=== PATIENT | male | born 1960 | race Caucasian/White ===

== ENCOUNTER 2016-10-17 18:49 | Inpatient (IN) | payer MEDICARE, MEDICAID ==
[~2016-10-17] VITALS: Ht 170.2 cm; Wt 72.5 kg
[~2016-10-17 18:49] MED LIST: /TAMS4CA; ALLE25CA; ATIV1TAB2; CHLO10SU; COGE1INJ; COLA100C2; DEPA500T2; EUCERIN; LAC HYDRIN; LASI20TA; MAGNESIUM; PRIL20CA; RISP3TAB16; SELSUN BLUE; [UNRECOGNIZED DRUG - OTHER]; [UNRECOGNIZED DRUG - OTHER]; dovonex; kenalog
[2016-10-17 21:45] LABS: CONTROL LINE INT CTR LINE PRESENT; METHADONE URINE NEGATIVE (NEGATIVE); TRICYCLIC ANTIDEPRESS URINE NEGATIVE (NEGATIVE)
[2016-10-17 22:17] LABS: MEAN CORPUSCULAR HEMOGLOBIN 30.6 pg (27.0-33.0); MEAN CORPUSCULAR HGB CONC 33.6 g/dl (32.0-36.5); MEAN CORPUSCULAR VOLUME 91.1 fl (80.0-96.0); RED CELL DISTRIBUTION WIDTH 12.7 % (11.5-14.5); WHITE BLOOD COUNT 6.4 K/mm3 (4.0-10.0)
[2016-10-17 22:44] LABS: ALBUMIN 3.5 GM/DL (3.2-5.2); ALBUMIN/GLOBULIN RATIO 1.13 (1.00-1.93); ALKALINE PHOSPHATASE 92 U/L (45-117); ALT/SGPT 30 U/L (12-78); ANION GAP 6 MEQ/L (8-16); AST/SGOT 26 U/L (15-37); BILIRUBIN,DIRECT 0.2 MG/DL (0.0-0.2); BILIRUBIN,TOTAL 0.6 MG/DL (0.2-1.0); BLOOD UREA NITROGEN 11 MG/DL (7-18); CALCIUM LEVEL 8.2 MG/DL (8.5-10.1); CARBON DIOXIDE LEVEL 29 MEQ/L (21-32); CHLORIDE LEVEL 105 MEQ/L (98-107); CREATININE FOR GFR 1.08 MG/DL (0.70-1.30); GLOMERULAR FILTRATION RATE > 60.0 (>56); GLUCOSE, FASTING 96 MG/DL (70-105); POTASSIUM SERUM 4.2 MEQ/L (3.5-5.1); SODIUM LEVEL 140 MEQ/L (136-145); TOTAL PROTEIN 6.6 GM/DL (6.4-8.2)
[2016-10-17] MEDS ORDERED: MAALOX 30 ML SUSP *UDC PO PRN (23:30)
[2016-10-17] MEDS ORDERED: MOM 30ML SUSPENSION UDC PO PRN (23:30)
[2016-10-17] MEDS ORDERED: CHLOR50TA PO (23:36)
[2016-10-17] MEDS ORDERED: ARTI99.0 OU (23:39)
[2016-10-17] MEDS ORDERED: ASPI325T PO (23:39)
[2016-10-17] MEDS ORDERED: STEL45IN SC (23:39)
[2016-10-18 04:29] VITALS: BP 135/80
[2016-10-18] MEDS ORDERED: chlorproMAZINE 25 MG TAB (Q0161) PO SCH ×2 (09:00→21:00)
--- NOTE | 2016-10-18 10:46 | HPEPDOC ---
Medical History and Physical Date of Admission Oct 17, 2016 at 23:18 History and Physical PCP: Dr Anastacio Felix ATTENDING: Dr. Lars Edwards HPI: 56 yo M admitted to [facility] for schizophrenia, being medically examined today. No acute medical complaints today. Denies any fevers, chills, weakness, fatigue, STEELE, CP, SOB, cough, palpitations, abdominal pain, N/V/D or changes in bowel or bladder habits. 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 IV Drug Use: Denies Tattoos done unprofessionally: 1 No previous HIV/hepatitis screening FAMHX: Mother: , pulmonary fibrosis Father: Alive, well Siblings: 3 sisters, one brother Alive, unknown Children: Alive, asthma Unexpected deaths due to medical reasons: None. ROS: As noted in HPI, otherwise 11pt ROS of systems reviewed and unremarkable. PE: GEN: 56 yoM, appears stated age. Well-nourished, well developed. No acute distress. Anxious. HEENT: Normocephalic, atraumatic. Pupils are equal, round, and reactive to light. Extraocular movements are intact. No nystagmus appreciated. Sclera are nonicteric. Conjunctiva without injection. Nose midline. Nasal turbinates without bogginess. EACs both patent BL. TMs both visualized and zelaya with good cone of light, no bulging or erythema. No facial asymmetry. Moist mucous membranes. Dentition fair. Pharynx pink and moist, no cobblestoning. Neck supple , trachea midline. No lymphadenopathy or thyromegaly appreciated. CHEST: Regular rate and rhythm, +S1, +S2 LUNGS: Clear to auscultation bilaterally. No wheezes, rales, or rhonchi. Breathing appears symmetric and easy. Patient is speaking in full sentences. No accessory muscle use. ABD: Round, soft, non-tender, non-distended. +Bowel sounds throughout. No rebound or guarding. No costovertebral angle tenderness. EXT: Pulses 2+ bilaterally dorsalis pedis and radial. No lower extremity edema appreciated. SKIN: [place], dry, warm. Capillary refill <2sec. psoriatic lesions are noted on the lower extremities bilaterally. NEURO: Alert and oriented x 3. Cranial nerves III-XII are intact. No focal deficits appreciated. EKG: pending. A&P: 56 yo M admitted to [facility] for schizophrenia 1. Psych. Plan per Psychiatry. Obtain baseline EKG to assure the safety of psychiatric medications as they can prolong the QT interval. 2. Dry eyes. Continue artificial tears as needed. 3. Psoriasis. Patient states he follows with [facility] dermatology. He remains on Stelara injection 45 mg subcutaneous every 3 monthly. He states his last dose was 10/04/16. 4. Follow up with PCP on discharge. 5. Staff member present throughout exam, melanie Quiñones. Vital Signs Vital Signs Label Value Date Time Patient Temperature 97.5 degrees F 10/18/16428 Temperature Source Tympanic 10/18/16428 Pulse 83 10/18/16428 Respiratory Rate 18 bpm 10/18/16428 Blood Pressure Assessment 135/80 (98) 10/18/16428 Bedside Pulse Oximetry 97 % 10/18/16 0415 Item Value Date Time Oxygen Delivery Method Room Air 10/18/16428 Laboratory Data Labs 24H Laboratory Tests 2 10/17/16 21:26: Urine Amphetamines Screen NEGATIVE, Urine Benzodiazepines Screen NEGATIVE, Urine Opiates Screen NEGATIVE, Urine Barbiturates Screen NEGATIVE, Urine Cannabinoids Screen NEGATIVE, Urine Cocaine Metabolite Screen NEGATIVE, Urine Methadone Screen NEGATIVE, Urine Tricyclic Antidepressants NEGATIVE 10/17/16 21:38: Acetaminophen Level < 2.0L, Aspartate Amino Transf (AST/SGOT) 26, Alanine Aminotransferase (ALT/SGPT) 30, Alkaline Phosphatase 92, Total Bilirubin 0.6, Direct Bilirubin 0.2, Albumin 3.5, Albumin/Globulin Ratio 1.13, Anion Gap 6L, Calcium Level 8.2L, Ethyl Alcohol Level < 0.003, Glomerular Filtration Rate > 60.0, Salicylates Level < 1.7L, Thyroid Stimulating Hormone (TSH) 0.947, Total Protein 6.6 CBC/BMP Laboratory Tests 10/17/16 21:38 Red Blood Count 5.22, Mean Corpuscular Volume 91.1, Mean Corpuscular Hemoglobin 30.6, Mean Corpuscular Hemoglobin Concent 33.6, Red Cell Distribution Width 12.7 Home Medications Scheduled (Stelara) 45 Mg/0.5 Ml Inj 45 MG SC Q3M Chlorpromazine HCl (Chlorpromazine HCl) 50 Mg Tab 50 MG PO QHS TOOK 100 MG 3/1 QHS Scheduled PRN Artificial Tears (Artificial Tears) 1.4 % Lona 1 DROP OU QID PRN PRN DRY EYES Aspirin (Aspirin) 325 Mg Tab 650 MG PO Q4H PRN PRN HEADACHE OR PAIN Allergies Coded Allergies: Ethanol (Verified Allergy, Unknown, 11/20/12) Fluoxetine (Verified Allergy, Unknown, 11/20/12) Olanzapine (Verified Allergy, Unknown, 11/20/12) Quetiapine (Verified Allergy, Unknown, 11/20/12) Risperidone (Verified Allergy, Unknown, HIVES, 11/20/12) Sertraline (Verified Allergy, Unknown, 11/20/12) Thioridazine (Verified Allergy, Unknown, 11/20/12) Nancy Anderson Oct 18, 2016 10:46
[2016-10-18 18:00] VITALS: BP 118/77
[2016-10-18] MEDS: HALOPERIDOL 5 MG TAB PO PRN (20:26)
[2016-10-18] MEDS: LORazepam 2 MG TAB PO PRN (20:26)
[2016-10-18] MEDS: diphenhydrAMINE 25 MG CAP PO PRN (20:26)
--- NOTE | 2016-10-18 20:33 | ECGEPIP ---
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
[2016-10-18] MEDS ORDERED: zolPIDEM TARTRATE 5 MG TAB PO ONE (21:00)
[2016-10-18] MEDS: chlorproMAZINE 25 MG TAB (Q0161) PO PRN (21:15)
[2016-10-19 06:37] VITALS: BP 105/57
[2016-10-19 18:00] VITALS: BP 111/62
[2016-10-19] MEDS: diphenhydrAMINE 25 MG CAP PO PRN (20:11)
[2016-10-19] MEDS: LORazepam 2 MG TAB PO PRN (20:11)
[2016-10-19] MEDS: chlorproMAZINE 25 MG TAB (Q0161) PO PRN (20:11)
[2016-10-19] MEDS: HALOPERIDOL 5 MG TAB PO PRN (20:11)
[2016-10-20 06:41] VITALS: BP 118/73
--- NOTE | 2016-10-20 08:34 | IPN ---
DATE: 10/19/2016 SUBJECTIVE: "Thorazine is what I need." OBJECTIVE: Patient appears to be improving slowly. Patient continues to be talkative but is in better control. Paranoid delusion has decreased. Patient is denying side effect from the medication and believed that Thorazine is helping, he is taking 100 mg twice a day. MENTAL STATUS EXAMINATION: Patient is dressed in [facility]. Patient is cooperative, has poor eye contact. His speech is somewhat pressured and talkative. Mood is somewhat elated. Affect is expansive. Patient continues with paranoid delusions but they are improving. No auditory or visual hallucinations. Memory is fair. Patient is able to contract for safety and denies suicidal or homicidal ideation during the interview. Insight and judgment is poor. ASSESSMENT: 1. Depression. 2. Paranoia. 3. Suicidal ideation. PLAN: 1. Continue Thorazine 100 mg by mouth twice a day. 2. Continue close observation. 3. Continue medication management, individual, and group therapy.
[2016-10-20 18:00] VITALS: BP 115/77
[2016-10-20] MEDS: LORazepam 2 MG TAB PO PRN (20:06)
[2016-10-20] MEDS: HALOPERIDOL 5 MG TAB PO PRN (20:06)
[2016-10-20] MEDS: chlorproMAZINE 25 MG TAB (Q0161) PO PRN (20:06)
[2016-10-21 06:20] VITALS: BP 117/63
[2016-10-21] MEDS: POLYVINYL ALCOHOL OPHTH SOLN 15 ML(LIQUITEARS) OU PRN (08:12)
--- NOTE | 2016-10-21 17:30 | IPN ---
DATE: 10/20/2016 MEDICATIONS: Thorazine 100 mg by mouth twice a day. SUBJECTIVE: "I'm feeling better." OBJECTIVE: The patient was laying in bed. The patient denies side effect from Thorazine but says that he was taking 50 mg as outpatient. He denies excessive sedation. The patient is less paranoid. The patient is able to contract for safety and denies suicidal or homicidal ideation during the interview. MENTAL STATUS EXAMINATION: The patient is dressed in [facility]. The patient is cooperative during the interview. He has fair eye contact. His speech is slow and monotone. Mood is anxous. Affect is restricted. The patient is less delusional and denies auditory and visual hallucinations. Memory is fair. The patient is able to contract for safety and denies suicidal or homicidal ideation during the interview. Insight and judgment are poor. ASSESSMENT: 1. Depression. 2. Paranoia. 3. Suicidal ideation. PLAN: 1. Continue Thorazine 100 mg by mouth twice a day. 2. Continue close observation. 3. Continue medication management, individual, and group therapy.
[2016-10-21 18:00] VITALS: BP 118/72
[2016-10-21] MEDS: diphenhydrAMINE 25 MG CAP PO PRN (21:01)
[2016-10-21] MEDS: LORazepam 2 MG TAB PO PRN (21:01)
[2016-10-21] MEDS: chlorproMAZINE 25 MG TAB (Q0161) PO SCH (21:01)
[2016-10-22 06:23] VITALS: BP 109/56
[2016-10-22] MEDS: ACETAMINOPHEN TAB 650MG DOSE (2X325MG) PO PRN (08:03)
[2016-10-22] MEDS: chlorproMAZINE 25 MG TAB (Q0161) PO PRN (17:35)
[2016-10-22] MEDS: diphenhydrAMINE 25 MG CAP PO PRN (20:35)
[2016-10-22] MEDS: LORazepam 2 MG TAB PO PRN (20:35)
[2016-10-22] MEDS: POLYVINYL ALCOHOL OPHTH SOLN 15 ML(LIQUITEARS) OU PRN (20:37)
[2016-10-22] MEDS: chlorproMAZINE 25 MG TAB (Q0161) PO SCH (20:39)
[2016-10-22 22:08] VITALS: BP 129/76
[2016-10-23 06:10] VITALS: BP 95/63
[2016-10-23] MEDS: POLYVINYL ALCOHOL OPHTH SOLN 15 ML(LIQUITEARS) OU PRN ×2 (06:43→20:51)
[2016-10-23 10:20] VITALS: BP 122/72
[2016-10-23 18:00] VITALS: BP 123/75
[2016-10-23] MEDS: chlorproMAZINE 25 MG TAB (Q0161) PO SCH (20:51)
[2016-10-23] MEDS: diphenhydrAMINE 25 MG CAP PO PRN (23:00)
[2016-10-24] MEDS: LORazepam 2 MG TAB PO PRN ×3 (05:08→20:34)
[2016-10-24 06:31] VITALS: BP 118/56
[2016-10-24 18:00] VITALS: BP 126/85
[2016-10-24] MEDS: chlorproMAZINE 25 MG TAB (Q0161) PO SCH (20:34)
[2016-10-24] MEDS: diphenhydrAMINE 25 MG CAP PO PRN (20:34)
[2016-10-25] MEDS: diphenhydrAMINE 25 MG CAP PO PRN (06:08)
[2016-10-25 06:37] VITALS: BP 86/56
[2016-10-25 08:16] VITALS: BP 128/70
[2016-10-25] MEDS: POLYVINYL ALCOHOL OPHTH SOLN 15 ML(LIQUITEARS) OU PRN (09:27)
[2016-10-25 18:00] VITALS: BP 128/77
[2016-10-25] MEDS: chlorproMAZINE 25 MG TAB (Q0161) PO SCH (20:54)
[2016-10-25] MEDS: LITHIUM CARBONATE 300 MG CAP PO SCH (20:55)
[2016-10-25] MEDS: LORazepam 1 MG TAB PO PRN (20:56)
[2016-10-26] MEDS: LORazepam 1 MG TAB PO PRN ×2 (04:41→17:43)
[2016-10-26 07:03] VITALS: BP 104/69
[2016-10-26 18:00] VITALS: BP 112/65
[2016-10-26] MEDS: LITHIUM CARBONATE 300 MG CAP PO SCH (21:00)
[2016-10-26] MEDS: chlorproMAZINE 25 MG TAB (Q0161) PO SCH (22:46)
[2016-10-27] MEDS: POLYVINYL ALCOHOL OPHTH SOLN 15 ML(LIQUITEARS) OU PRN (06:34)
[2016-10-27 06:46] VITALS: BP 120/74
[2016-10-27 18:00] VITALS: BP 138/80
[2016-10-27] MEDS: chlorproMAZINE 25 MG TAB (Q0161) PO SCH (22:54)
[2016-10-27] MEDS: LITHIUM CARBONATE 300 MG CAP PO SCH (22:54)
[2016-10-28] MEDS: LORazepam 1 MG TAB PO PRN ×3 (00:17→23:18)
[2016-10-28] MEDS: diphenhydrAMINE 25 MG CAP PO PRN ×2 (04:31→23:17)
[2016-10-28] MEDS: ACETAMINOPHEN TAB 650MG DOSE (2X325MG) PO PRN (04:33)
[2016-10-28 06:30] VITALS: BP 122/74
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
[2016-10-28 18:00] VITALS: BP 125/83
[2016-10-28] MEDS: chlorproMAZINE 25 MG TAB (Q0161) PO SCH (23:17)
[2016-10-28] MEDS: LITHIUM CARBONATE 300 MG CAP PO SCH (23:17)
[2016-10-29 06:32] VITALS: BP 108/72
[2016-10-29] MEDS: LORazepam 1 MG TAB PO PRN ×2 (14:39→20:01)
[2016-10-29] MEDS: diphenhydrAMINE 25 MG CAP PO PRN ×2 (14:39→20:01)
[2016-10-29] MEDS: chlorproMAZINE 25 MG TAB (Q0161) PO PRN (15:05)
--- NOTE | 2016-10-29 17:01 | IPNPDOC ---
[facility] Progress Note Progress Note DATE OF SERVICE: 10/29/16 HISTORY: The patient is met with today and continues to describe that he feels some dry mouth secondary to lithium. He does describe the Thorazine gives him a dry mouth as well. He was focused on discharge. The nursing staff noted behavior to remain somewhat bizarre. He has attended groups intermittently. He has been noted to be socializing of the peers on the jordan. VITAL SIGNS: See below. NEW TEST RESULTS: None. CURRENT MEDICATIONS: See below. MENTAL STATUS EXAMINATION: Patient is a 56-year old male, who is pleasant and cooperative but disheveled,. Speech: is normal in rate volume and articulation. His speech appears generally spontaneous and coherent. Language skills are intact. Thought processes including: Somewhat circumferential Thought content: Illogical at times. Abstract reasoning, and computation: [place] thinking. Description of associations: Loose. Description of abnormal or psychotic thoughts: Does not appear to be responding to internal stimuli.. Judgment: Limited. Insight: Limited. Orientation to time place and person. Recent and remote memory: Immediate, short-term and long-term memory appears grossly intact. Attention span and concentration: Good. Language: Normal. Fund of knowledge: Adequate. Mood: "Okay". Affect: Flat. DIAGNOSES: 1. Unspecified psychotic disorder. 2. Unspecified depressive disorder ASSESSMENT: A 56-year-old man with a history of psychosis who presents in a paranoid and mood disordered state. He is started on lithium which appears to be improving his mood and he appears to be less bizarre. MANAGEMENT PLAN: 1. Continue lithium 300 mg twice a day, ordering a lithium level today as it appears as though no order to be found 2. Continue Thorazine 125 mg daily 3. Continue inpatient stay as the patient will need further titration of medicine and are to control his paranoid and mood disordered state. At this time still poses a danger to himself and others if he is prematurely released TIME SPENT: 10 minutes. Vital Signs Vital Signs Date Time Temp Pulse Resp B/P Pulse Ox O2 Delivery O2 Flow Rate FiO2 10/29/16 06:32 95.8 68 16 108/72 10/25/16 08:16 98 Current Medications Current Medications Acetaminophen (Tylenol Tab) 650 mg Q6HP PRN PO HEADACHE or DISCOMFORT Last administered on 10/28/16t 04:33; Start 10/17/16 at 23:30; Stop 11/16/16 at 23:29 Al Hydrox/Mg Hydrox/Simethicone (Mylanta) 30 ml Q4HP PRN PO HEARTBURN/ INDIGESTION; Start 10/17/16 at 23:30; Stop 11/16/16 at 23:29 Artificial Tears ([place]wa Tears) 1 drop QIDP PRN OU DRY EYES Last administered on 10/27/16 06:34; Start 10/18/16 at 10:45; Stop 11/17/16 at 10:44 Chlorpromazine HCl (Thorazine) 25 mg Q6HP PRN PO AGITATION Last administered on 10/29/16 15:05; Start 10/21/16 at 12:45; Stop 11/20/16 at 12:44 Chlorpromazine HCl (Thorazine) 50 mg Q4HP PRN PO AGITATION Last administered on 10/20/16 20:06; Start 10/17/16 at 23:30; Stop 10/21/16 at 12:29; Status DC Chlorpromazine HCl (Thorazine) 50 mg QHS PO ; Start 10/18/16 at 21:00; Stop at 20:59; Status Cancel Chlorpromazine HCl (Thorazine) 75 mg QHS PO Last administered on 10/24/16 20:34 ; Start 10/23/16 at 21:00; Stop 10/25/16 at 11:54; Status DC Chlorpromazine HCl (Thorazine) 100 mg BID PO ; Start 10/18/16 at 09:00; Stop 10/18 at 13:34; Status DC Chlorpromazine HCl (Thorazine) 100 mg QHS PO Last administered on 10/22/16 20: 39; Start 10/21/16 at 21:00; Stop 10/23/16 at 10:16; Status DC Chlorpromazine HCl (Thorazine) 125 mg QHS PO Last administered on 10/28/16 23: 17; Start 10/25/16 at 21:00; Stop 11/24/16 at 20:59 Diphenhydramine HCl (Benadryl) 25 mg Q4HP PRN PO ITCHING Last administered on 14:39; Start 10/18/16 at 19:00; Stop 11/17/16 at 18:59 Haloperidol (Haldol) 5 mg Q4HP PRN PO AGITATION Last administered on 10/20/16 20:06; Start 10/18/16 at 19:00; Stop 10/21/16 at 12:29; Status DC Home Med (Med Rec Complete!) ASDIRECTED XX ; Start 10/17/16 at 23:45; Stop at 23:45; Status DC [place] Carbonate ([place] Carbonate) 300 mg QHS PO Last administered on 23:17; Start 10/25/16 at 21:00; Stop 11/24/16 at 20:59 Lorazepam (Ativan) 1 mg QIDP PRN PO ANXIETY/AGITATION Last administered on 10/29 14:39; Start 10/25/16 at 19:00; Stop 10/31/16 at 18:59 Lorazepam (Ativan) 2 mg Q4HP PRN PO ANXIETY/AGITATION Last administered on 20:34; Start 10/18/16 at 19:00; Stop 10/25/16 at 11:54; Status DC Magnesium Hydroxide (Milk Of Magnesia) 30 ml DAILYPRN PRN PO CONSTIPATION Last administered on 10/27/16 08:43; Start 10/17/16 at 23:30; Stop 11/16/16 at 23:29 Allergies Coded Allergies: Ethanol (Verified Allergy, Unknown, 11/20/12) Fluoxetine (Verified Allergy, Unknown, 11/20/12) Olanzapine (Verified Allergy, Unknown, 11/20/12) Quetiapine (Verified Allergy, Unknown, 11/20/12) Risperidone (Verified Allergy, Unknown, HIVES, 11/20/12) Sertraline (Verified Allergy, Unknown, 11/20/12) Thioridazine (Verified Allergy, Unknown, 11/20/12) GME ATTESTATION My preceptor for this patient encounter was fully available. As needed, all aspects of the patient interview, examination, medical decision making process, and medical care plan development were reviewed and approved by the preceptor. Preceptor is aware and concurs with the plan as stated in the body of this note and will attest to such by his/her cosignature. JERRY HOOD DO Oct 29, 2016 17:01
[2016-10-29 18:00] VITALS: BP 108/72
[2016-10-29] MEDS: LITHIUM CARBONATE 300 MG CAP PO SCH (20:01)
[2016-10-29] MEDS: chlorproMAZINE 25 MG TAB (Q0161) PO SCH (20:01)
[2016-10-30 06:00] VITALS: BP 98/62
[2016-10-30] MEDS: chlorproMAZINE 25 MG TAB (Q0161) PO PRN (15:22)
[2016-10-30 18:00] VITALS: BP 137/79
--- NOTE | 2016-10-30 21:27 | IPNPDOC ---
[facility] Progress Note Progress Note DATE OF SERVICE: 10/30/16 HISTORY: The patient is met with both separately and in group today. He had a productive process group and opened up about his issues with judgement and feeling fearful of other's intensions. The group was challenging and supportive to him. He was able to reflect on his challenges with medical problems and the justification of extremely expensive medicines. He is eager to be discharged on friday. His lithium level came back at subtherapeutic on 300mg BID. He has alluded to no issues with his skin condition since the start of the lithium last week ( lithium and psoriasis can sometimes worsen psoriasis). The patient otherwise described that he was feeling better. He has been able to relate to others in more meaningful ways with less irritability and difficulty. He spoke of missing his family. VITAL SIGNS: See below. NEW TEST RESULTS: [place] less than 0.20 CURRENT MEDICATIONS: See below. MENTAL STATUS EXAMINATION: Patient is a 56-year old male, who is cooperative and at times irritable. Speech: Is normal in rate, volume, and articulation, and is coherent and spontaneous. Language skills are intact. Thought processes including: Goal directed. Thought content: irrational and somewhat paranoid Abstract reasoning, and computation: intact. Description of associations: somewhat loose Description of abnormal or psychotic thoughts: makes no threats to others or self. Doesn't allude to any AH or VH. Doesn't appear to be responding to internal stimuli. Judgment: fair Insight: poor, improving Orientation to time, place and person Recent and remote memory: immediate, short-term and long-term memory is intact. Attention span and concentration: good Language: Normal. Fund of knowledge: adequate Mood: "fine" Affect: flat DIAGNOSES: 1. Unspecified psychosis 2. History of Bipolar disorder ASSESSMENT:56 yo man with a history of bipolar disorder, whom presents in a paranoid and dysregulated state. He has been improving on lithium, although it could worsen his skin condition, he has yet to have any issues with it as of yet. MANAGEMENT PLAN: 1.[place] increase to 600mg BID, with level in a few days 2. Thorazine 125mg daily 3. Continue inpatient stay as patient is too ill from his paranoid state at this time to be safety discharged home TIME SPENT: 30 minutes. Vital Signs Vital Signs Date Time Temp Pulse Resp B/P Pulse Ox O2 Delivery O2 Flow Rate FiO2 10/30/16 06:00 98.0 95 16 98/62 10/25/16 08:16 98 Laboratory Data 24H Labs Item Value Date Time [place] Level < 0.20 MEQ/L L 10/29/16 1739 Current Medications Current Medications Acetaminophen (Tylenol Tab) 650 mg Q6HP PRN PO HEADACHE or DISCOMFORT Last administered on 10/28/16 04:33; Start 10/17/16 at 23:30; Stop 11/16/16 at 23:29 Al Hydrox/Mg Hydrox/Simethicone (Mylanta) 30 ml Q4HP PRN PO HEARTBURN/ INDIGESTION; Start 10/17/16 at 23:30; Stop 11/16/16 at 23:29 Artificial Tears ([place] Tears) 1 drop QIDP PRN OU DRY EYES Last administered on 10/27/16 06:34; Start 10/18/16 at 10:45; Stop 11/17/16 at 10:44 Chlorpromazine HCl (Thorazine) 25 mg Q6HP PRN PO AGITATION Last administered on 10/30/16 15:22; Start 10/21/16 at 12:45; Stop 11/20/16 at 12:44 Chlorpromazine HCl (Thorazine) 50 mg Q4HP PRN PO AGITATION Last administered on 10/20/16 20:06; Start 10/17/16 at 23:30; Stop 10/21/16 at 12:29; Status DC Chlorpromazine HCl (Thorazine) 50 mg QHS PO ; Start 10/18/16 at 21:00; Stop at 20:59; Status Cancel Chlorpromazine HCl (Thorazine) 75 mg QHS PO Last administered on 10/24/16 20:34 ; Start 10/23/16 at 21:00; Stop 10/25/16 at 11:54; Status DC Chlorpromazine HCl (Thorazine) 100 mg BID PO ; Start 10/18/16 at 09:00; Stop 10/18 at 13:34; Status DC Chlorpromazine HCl (Thorazine) 100 mg QHS PO Last administered on 10/22/16 20: 39; Start 10/21/16 at 21:00; Stop 10/23/16 at 10:16; Status DC Chlorpromazine HCl (Thorazine) 125 mg QHS PO Last administered on 10/29/16 20: 01; Start 10/25/16 at 21:00; Stop 11/24/16 at 20:59 Diphenhydramine HCl (Benadryl) 25 mg Q4HP PRN PO ITCHING Last administered on 20:01; Start 10/18/16 at 19:00; Stop 11/17/16 at 18:59 Haloperidol (Haldol) 5 mg Q4HP PRN PO AGITATION Last administered on 10/20/16 20:06; Start 10/18/16 at 19:00; Stop 10/21/16 at 12:29; Status DC Home Med (Med Rec Complete!) ASDIRECTED XX ; Start 10/17/16 at 23:45; Stop at 23:45; Status DC [place] Carbonate ([place] Carbonate) 300 mg QHS PO Last administered on 20:01; Start 10/25/16 at 21:00; Stop 10/30/16 at 16:29; Status DC [place] Carbonate ([place] Carbonate) 600 mg QHS PO ; Start 10/30/16 at 21:00; Stop 11/29/16 at 20:59 Lorazepam (Ativan) 1 mg QIDP PRN PO ANXIETY/AGITATION Last administered on 10/29 20:01; Start 10/25/16 at 19:00; Stop 10/31/16 at 18:59 Lorazepam (Ativan) 2 mg Q4HP PRN PO ANXIETY/AGITATION Last administered on 20:34; Start 10/18/16 at 19:00; Stop 10/25/16 at 11:54; Status DC Magnesium Hydroxide (Milk Of Magnesia) 30 ml DAILYPRN PRN PO CONSTIPATION Last administered on 10/27/16 08:43; Start 10/17/16 at 23:30; Stop 11/16/16 at 23:29 Allergies Coded Allergies: Ethanol (Verified Allergy, Unknown, 11/20/12) Fluoxetine (Verified Allergy, Unknown, 11/20/12) Olanzapine (Verified Allergy, Unknown, 11/20/12) Quetiapine (Verified Allergy, Unknown, 11/20/12) Risperidone (Verified Allergy, Unknown, HIVES, 11/20/12) Sertraline (Verified Allergy, Unknown, 11/20/12) Thioridazine (Verified Allergy, Unknown, 11/20/12) GME ATTESTATION My preceptor for this patient encounter was fully available. As needed, all aspects of the patient interview, examination, medical decision making process, and medical care plan development were reviewed and approved by the preceptor. Preceptor is aware and concurs with the plan as stated in the body of this note and will attest to such by his/her cosignature. JERRY HOOD DO Oct 30, 2016 21:27
[2016-10-30] MEDS: LITHIUM CARBONATE 600 MG CAP PO SCH (23:15)
[2016-10-30] MEDS: chlorproMAZINE 25 MG TAB (Q0161) PO SCH (23:16)
[2016-10-31] MEDS: LORazepam 1 MG TAB PO PRN (00:39)
[2016-10-31 06:20] VITALS: BP 142/98
[2016-10-31] MEDS: chlorproMAZINE 25 MG TAB (Q0161) PO PRN (14:49)
[2016-10-31 18:00] VITALS: BP 132/77
--- NOTE | 2016-10-31 19:12 | IPNPDOC ---
[facility] Progress Note Progress Note DATE OF SERVICE: 10/31/16 HISTORY: The patient is met with today partial in group and individually. He described that he is feeling better for discharge and is excited. He has alluded to no signs of lithium toxicity has has been increased to 600 mg twice a day. His previous lithium levels were well below therapeutic for bipolar disorder. The patient. he has been socializing on the jordan as been generally nondisruptive. He has at times annoyed other patients but appears to be generally amenable to redirection. His has reportedly testified that he is close to his baseline is feel safe taking him home. The nursing staff have no complaints or issues relating to his behavior overnight. VITAL SIGNS: See below. NEW TEST RESULTS: None. CURRENT MEDICATIONS: See below. MENTAL STATUS EXAMINATION: Patient is a 56-year old male, who is pleasant and cooperative, . Speech: Is spontaneous and fluid. Language skills are intact Thought processes including: Linear. Thought content: Peers to perseverate at times about mandaeism ideation but is easily redirectable. Abstract reasoning, and computation: Generally intact. Description of associations: Circumstantial. Description of abnormal or psychotic thoughts: And does not making threats against himself or others on the jordan. Does not appear to be responding to internal stimuli. Judgment: Fair. Insight: Limited. Orientation to alert and oriented 3. Recent and remote memory: Grossly intact. Attention span and concentration: Good. Language: Normal. Fund of knowledge: Adequate. Mood: "Excited". Affect: Somewhat elated and constricted with some intrusive behavior. DIAGNOSES: 1. Unspecified psychosis. 2. History of bipolar disorder. ASSESSMENT: 56-year-old male with a history of bipolar disorder who presents in what appears to be a manic episode. He has responded well to the lithium and his Thorazine. He did allude that he has used marijuana recently as a possible provoking factor for his current manic episode. He has been improving on the jordan although, his lithium levels are not therapeutic as of yet he has done quite well on his current dose of lithium MANAGEMENT PLAN: 1. Continue lithium 6 mg twice a day 2. Continue Thorazine 125 mg daily 3. Plan for discharge tomorrow with close outpatient follow-up TIME SPENT: 15 minutes. Vital Signs Vital Signs Date Time Temp Pulse Resp B/P Pulse Ox O2 Delivery O2 Flow Rate FiO2 10/31/16 18:00 99.0 100 16 132/77 10/25/16 08:16 98 Current Medications Current Medications Acetaminophen (Tylenol Tab) 650 mg Q6HP PRN PO HEADACHE or DISCOMFORT Last administered on 10/28/16 04:33; Start 10/17/16 at 23:30; Stop 11/16/16 at 23:29 Al Hydrox/Mg Hydrox/Simethicone (Mylanta) 30 ml Q4HP PRN PO HEARTBURN/ INDIGESTION; Start 10/17/16 at 23:30; Stop 11/16/16 at 23:29 Artificial Tears (Akwa Tears) 1 drop QIDP PRN OU DRY EYES Last administered on 10/27/16 06:34; Start 10/18/16 at 10:45; Stop 11/17/16 at 10:44 Chlorpromazine HCl (Thorazine) 25 mg Q6HP PRN PO AGITATION Last administered on 10/31/16 14:49; Start 10/21/16 at 12:45; Stop 11/20/16 at 12:44 Chlorpromazine HCl (Thorazine) 50 mg Q4HP PRN PO AGITATION Last administered on 10/20/16 20:06; Start 10/17/16 at 23:30; Stop 10/21/16 at 12:29; Status DC Chlorpromazine HCl (Thorazine) 50 mg QHS PO ; Start 10/18/16 at 21:00; Stop at 20:59; Status Cancel Chlorpromazine HCl (Thorazine) 75 mg QHS PO Last administered on 10/24/16 20:34 ; Start 10/23/16 at 21:00; Stop 10/25/16 at 11:54; Status DC Chlorpromazine HCl (Thorazine) 100 mg BID PO ; Start 10/18/16 at 09:00; Stop 10/18 at 13:34; Status DC Chlorpromazine HCl (Thorazine) 100 mg QHS PO Last administered on 10/22/16 20: 39; Start 10/21/16 at 21:00; Stop 10/23/16 at 10:16; Status DC Chlorpromazine HCl (Thorazine) 125 mg QHS PO Last administered on 10/30/16 23: 16; Start 10/25/16 at 21:00; Stop 11/24/16 at 20:59 Diphenhydramine HCl (Benadryl) 25 mg Q4HP PRN PO ITCHING Last administered on 20:01; Start 10/18/16 at 19:00; Stop 11/17/16 at 18:59 Haloperidol (Haldol) 5 mg Q4HP PRN PO AGITATION Last administered on 10/20/16 20:06; Start 10/18/16 at 19:00; Stop 10/21/16 at 12:29; Status DC Home Med (Med Rec Complete!) ASDIRECTED XX ; Start 10/17/16 at 23:45; Stop at 23:45; Status DC [place] Carbonate ([place] Carbonate) 300 mg QHS PO Last administered on 20:01; Start 10/25/16 at 21:00; Stop 10/30/16 at 16:29; Status DC [place] Carbonate ([place] Carbonate) 600 mg QHS PO Last administered on 23:15; Start 10/30/16 at 21:00; Stop 11/29/16 at 20:59 Lorazepam (Ativan) 1 mg QIDP PRN PO ANXIETY/AGITATION Last administered on 10/31 00:39; Start 10/25/16 at 19:00; Stop 10/31/16 at 18:59; Status DC Lorazepam (Ativan) 2 mg Q4HP PRN PO ANXIETY/AGITATION Last administered on 20:34; Start 10/18/16 at 19:00; Stop 10/25/16 at 11:54; Status DC Magnesium Hydroxide (Milk Of Magnesia) 30 ml DAILYPRN PRN PO CONSTIPATION Last administered on 10/27/16 08:43; Start 10/17/16 at 23:30; Stop 11/16/16 at 23:29 Allergies Coded Allergies: Ethanol (Verified Allergy, Unknown, 11/20/12) Fluoxetine (Verified Allergy, Unknown, 11/20/12) Olanzapine (Verified Allergy, Unknown, 11/20/12) Quetiapine (Verified Allergy, Unknown, 11/20/12) Risperidone (Verified Allergy, Unknown, HIVES, 11/20/12) Sertraline (Verified Allergy, Unknown, 11/20/12) Thioridazine (Verified Allergy, Unknown, 11/20/12) GME ATTESTATION My preceptor for this patient encounter was fully available. As needed, all aspects of the patient interview, examination, medical decision making process, and medical care plan development were reviewed and approved by the preceptor. Preceptor is aware and concurs with the plan as stated in the body of this note and will attest to such by his/her cosignature. JERRY HOOD DO Oct 31, 2016 19:12
[2016-10-31] MEDS: LITHIUM CARBONATE 600 MG CAP PO SCH (23:02)
[2016-10-31] MEDS: chlorproMAZINE 25 MG TAB (Q0161) PO SCH (23:02)
[2016-11-01 06:20] VITALS: BP 130/82
[2016-11-01] MEDS ORDERED: LITH600C PO (10:45)
[2016-11-01] MEDS ORDERED: CHLOR25TA PO ×2 (10:45)
--- NOTE | 2016-11-01 17:40 | DS.PDOC ---
[facility] Discharge Summary Discharge Summary DATE OF ADMISSION: Oct 17, 2016 at 23:18 DATE OF DISCHARGE: Nov 01, 2016 at 12:25 DISCHARGE DIAGNOSES: 1. Unspecified psychosis. 2. History of bipolar disorder. REASON FOR ADMISSION: The patient was admitted for paranoia and psychosis and reportedly suicidal ideation which he presented himself to the emergency room. He had a history of bipolar disorder and recently started using cannabis prior to his acute decompensation. CONSULTANTS INVOLVED: None TREATMENT AND PROGRESS ON THE UNIT : The patient initially presented quite intrusive and paranoid. He was religiously preoccupied to the point where he was unable socialize many peers on the jordan and was noted to be difficult to work with. He was eventually started on lithium 300 mg twice a day and his Thorazine was increased to 125 mg daily. He appeared to respond fairly well to the lithium and the increase Thorazine dose with minimal side effects. He is presently a dry mouth and his psoriasis did not appear to decompensate. He was able to attend groups and reflect cogently on his reasons for admission. He became much less intrusive and religiously preoccupied. His met with him regularly and stated that he was currently has baseline. He is arranged for discharge. The patient's lithium level was drawn and it came back at less than 0.20. His lithium was increased to 600 mg twice daily, he appeared to tolerate this dose well before his discharge. DISCHARGE ASSESSMENT: 56-year-old with a history of bipolar disorder who presented paranoid and psychotic. He was fairly intrusive and religiously preoccupied. After the start of lithium and increase Thorazine he appeared improved quite well. MENTAL STATUS EXAMINATION ON DISCHARGE: Patient is a 56-year old male, who is pleasant, cooperative and well kept . Speech is spontaneous and fluid. Language skills are intact. Thought processes including: Linear logical. Thought content: Some mild perseveration on current news topics. Abstract reasoning, and computation: Intact. Description of associations: Intact. Description of abnormal or psychotic thoughts: Makes to threats against himself or others. Does not appear to be responding to internal stimuli. Does not endorse any overtly paranoid or his ideation today. Judgment: Fair. Insight: Limited. Orientation to alert and oriented 3. Recent and remote memory: Grossly intact. Attention span and concentration: Good. Language: Normal. Fund of knowledge: Adequate. Mood: "Great". Affect: Euthymic with a full range. MEDICATIONS ON DISCHARGE: -[place] 600 mg twice a day for mood. -Thorazine 125 mg daily for psychosis. PLAN/FOLLOWUP ARRANGEMENTS: The patient was discharged home to the care of his family. He was set up with outpatient provider appointments to follow-up for his psychiatric care. He will likely need a follow-up lithium level is coming week. The amount of time spent in the coordination of care for this patient was approximately 30 minutes. Vital Signs Vital Sign - Last 24 Hours 10/31/16 11/01/16 18:00 06:20 Temp 99.0 98.1 Pulse 100 97 Resp 16 18 B/P 132/77 130/82 Medications Scheduled (Stelara) 45 Mg/0.5 Ml Inj 45 MG SC Q3M (Reported) Chlorpromazine HCl (Chlorpromazine HCl) 25 Mg Tab #7 25 MG PO QAM Bipolar mood swings Chlorpromazine HCl (Chlorpromazine HCl) 25 Mg Tab #35 125 MG PO QHS Bipolar Disorder and insomnia [place] Carbonate ([place] Carbonate) 600 Mg Cap #7 600 MG PO QHS mood swings Allergies Coded Allergies: Ethanol (Verified Allergy, Unknown, 11/20/12) Fluoxetine (Verified Allergy, Unknown, 11/20/12) Olanzapine (Verified Allergy, Unknown, 11/20/12) Quetiapine (Verified Allergy, Unknown, 11/20/12) Risperidone (Verified Allergy, Unknown, HIVES, 11/20/12) Sertraline (Verified Allergy, Unknown, 11/20/12) Thioridazine (Verified Allergy, Unknown, 11/20/12) GME ATTESTATION My preceptor for this patient encounter was fully available. As needed, all aspects of the patient interview, examination, medical decision making process, and medical care plan development were reviewed and approved by the preceptor. Preceptor is aware and concurs with the plan as stated in the body of this note and will attest to such by his/her cosignature. JERRY HOOD DO Nov 01, 2016 17:40 JERRY HOOD DO Nov 01, 2016 17:40
== END 2016-11-01 12:25 | disposition home or self-care (01) | DRG 885 ==
LOC: M ED 20:58 → M ED INP 23:18 → M PSY 10-18 04:18
PROVIDERS: ADMIT Internal Medicine Addiction Medicine; ATTEND Internal Medicine Addiction Medicine
DX: F31.13 Bipolar disorder, current episode manic without psychotic features, severe (principal); L40.9 Psoriasis, unspecified; H04.123 Dry eye syndrome of bilateral lacrimal glands; F25.0 Schizoaffective disorder, bipolar type; Z79.899 Other long term (current) drug therapy; Z88.8 Allergy status to other drugs, medicaments and biological substances

== ENCOUNTER → 2016-12-24 | Outpatient (REF) | payer MEDICARE, MEDICAID ==
[~2016-12-24] MED LIST changes: +ARTI99.0 OU; +ASPI325T PO; +CHLOR25TA PO; +CHLOR50TA PO; +LITH600C PO; +STEL45IN SC
== END ==
LOC: M LAB REF 12:31
PROVIDERS: ATTEND Surgery
DX: Z51.81 Encounter for therapeutic drug level monitoring (principal); Z79.899 Other long term (current) drug therapy

== ENCOUNTER 2017-05-08 13:26 | Inpatient (IN) | payer MEDICARE, MEDICAID ==
[~2017-05-08] VITALS: Ht 167.6 cm; Wt 78.0 kg
[2017-05-08] MEDS ORDERED: CHLOR50TA PO (13:54)
[2017-05-08] MEDS ORDERED: DIVA500T9 PO (13:54)
[2017-05-08] MEDS ORDERED: CHLOR10TAB PO (13:54)
[2017-05-08 15:02] LABS: ALBUMIN 3.8 GM/DL (3.2-5.2); ALBUMIN/GLOBULIN RATIO 1.03 (1.00-1.93); ALKALINE PHOSPHATASE 94 U/L (45-117); ALT/SGPT 18 U/L (12-78); ANION GAP 3 MEQ/L (8-16); AST/SGOT 18 U/L (15-37); BILIRUBIN,DIRECT 0.1 MG/DL (0.0-0.2); BILIRUBIN,TOTAL 0.6 MG/DL (0.2-1.0); BLOOD UREA NITROGEN 16 MG/DL (7-18); CALCIUM LEVEL 9.1 MG/DL (8.5-10.1); CARBON DIOXIDE LEVEL 31 MEQ/L (21-32); CHLORIDE LEVEL 105 MEQ/L (98-107); CREATININE FOR GFR 1.12 MG/DL (0.70-1.30); GLOMERULAR FILTRATION RATE > 60.0 (>56); GLUCOSE, FASTING 87 MG/DL (70-105); POTASSIUM SERUM 4.9 MEQ/L (3.5-5.1); SODIUM LEVEL 139 MEQ/L (136-145); TOTAL PROTEIN 7.5 GM/DL (6.4-8.2)
[2017-05-08 15:05] LABS: MEAN CORPUSCULAR HEMOGLOBIN 31.2 pg (27.0-33.0); MEAN CORPUSCULAR HGB CONC 32.9 g/dl (32.0-36.5); MEAN CORPUSCULAR VOLUME 94.7 fl (80.0-96.0); RED CELL DISTRIBUTION WIDTH 12.9 % (11.5-14.5); WHITE BLOOD COUNT 6.7 K/mm3 (4.0-10.0)
[2017-05-08] MEDS ORDERED: MOM 30ML SUSPENSION UDC PO PRN (16:15)
[2017-05-08] MEDS ORDERED: MAALOX 30 ML SUSP *UDC PO PRN (16:15)
[2017-05-08] MEDS ORDERED: ACETAMINOPHEN TAB 650MG DOSE (2X325MG) PO PRN (16:15)
[2017-05-08] MEDS ORDERED: traZODone 50 MG TAB PO PRN (16:15)
[2017-05-08 16:24] LABS: METHADONE URINE NEGATIVE (NEGATIVE)
[2017-05-08 18:09] VITALS: BP 131/68
[2017-05-08] MEDS: DIVALPROEX 250MG *ER* TAB PO SCH (22:31)
[2017-05-08] MEDS: chlorproMAZINE 25 MG TAB (Q0161) PO SCH ×2 (22:32)
[2017-05-09 06:00] VITALS: BP 104/63
--- NOTE | 2017-05-09 09:04 | MHHPE ---
DATE OF ADMISSION: 05/08/2017 Mr. Arreaga is a 56-year-old man who states he is diagnosed with schizophrenia. He states that his case loader operator came to his house yesterday and have changed the date where he is unable to see his children. He states because of that he became suicidal and he was brought to the hospital. He presently has an order of protection where he cannot see his children due to having used marijuana with one of his sons in October. EMPLOYMENT HISTORY: The patient is on disability for schizophrenia. PSYCHIATRIC HISTORY: The patient states he has had schizophrenia since age 18. The patient states he has lost count how many psychiatric hospitalizations he has had and he has been tried on numerous medications. He states presently he is on chlorpromazine and Depakote because "the other medications didn't work". He apparently is taking 150 mg of chlorpromazine and he does not know the dose of Depakote. He has been hospitalized here in [place] two to three times at least, but as stated previously he has lost count of all of his hospitalizations. LEGAL HISTORY: He has been just released in March from 120 days in detention after he fled the police. Apparently, he was visiting the mother of a friend of his sons to talk to her about how much trouble his son had gotten him in. She called the police and he apparently took off and would not stop and fled the police. MEDICAL HISTORY: Positive for psoriasis and he takes STELARA injections. NEUROLOGICAL HISTORY: The patient states he becomes dizzy and faint at times when he wakes in the morning. MARITAL HISTORY: The patient is for 20 years, he is not , his is named [place]. He has children who are 14, 16 and 18. He is presently living in an apartment in [place]. He is very depressed about his children and not seeing them. MENTAL STATUS EXAMINATION: Speech is sparse. Thought process - is slow to answer questions. No loose associations. He is denying any abnormal or psychotic thoughts. Judgment and insight are poor. He is fully oriented. Recent and remote memory are intact. Attention and concentration are within normal limits. No disturbance of language. He has a full fund of knowledge. Mood is low. Affect is sad. Eye contact is poor. IMPRESSION: Schizophrenia, chronic. PLAN: Further information will be gathered and assessment and evaluation of his medications and discussion with his case loader operator will ensue.
--- NOTE | 2017-05-09 11:09 | HPEPDOC ---
[facility] Medical History & Physical Date of Admission May 09, 2017 History and Physical PCP: Dr Anastacio Felix ATTENDING: Dr. Lars Edwards HPI: 56 yo M [facility] "[facility]", being medically examined today. No acute medical complaints today. Denies any fevers, chills, weakness, fatigue, STEELE, CP, SOB, cough, palpitations, abdominal pain, N/V/D or changes in bowel or bladder habits. PMHx: Psoriasis. Following with rheumatology in [place] Dry eyes Schizophrenia Bipolar disorder PSHX: Left inguinal hernia repair SOCHX: Resides in: [facility] Marital Status: Kids: 3 Employment: Unemployed currently Tobacco use: Denies ETOH: Denies Illicit Drugs: States used marijuana 1 week ago otherwise does not use any substances. IV Drug Use: Denies Tattoos done unprofessionally: 1 FAMHX: Mother: , pulmonary fibrosis Father: Alive, well Siblings: 3 sisters, one brother Alive, unknown Children: Alive, asthma Unexpected deaths due to medical reasons: None. ROS: As noted in HPI, otherwise 11pt ROS of systems reviewed and unremarkable. PE: GEN: 56 yoM, appears stated age. Well-nourished, well developed. No acute distress. Anxious. HEENT: Normocephalic, atraumatic. Pupils are equal, round, and reactive to light. Extraocular movements are intact. No nystagmus appreciated. Sclera are nonicteric. Conjunctiva without injection. Nose midline. Nasal turbinates without bogginess. EACs both patent BL. TMs both visualized and zelaya with good cone of light, no bulging or erythema. No facial asymmetry. Moist mucous membranes. Dentition fair. Pharynx pink and moist, no cobblestoning. Neck supple , trachea midline. No lymphadenopathy or thyromegaly appreciated. CHEST: Regular rate and rhythm, +S1, +S2 LUNGS: Clear to auscultation bilaterally. No wheezes, rales, or rhonchi. Breathing appears symmetric and easy. Patient is speaking in full sentences. No accessory muscle use. ABD: Round, soft, non-tender, non-distended. +Bowel sounds throughout. No rebound or guarding. No costovertebral angle tenderness. EXT: Pulses 2+ bilaterally dorsalis pedis and radial. No lower extremity edema appreciated. SKIN: [place], dry, warm. Capillary refill <2sec. psoriatic lesions are noted on the lower extremities bilaterally. NEURO: Alert and oriented x 3. Cranial nerves III-XII are intact. No focal deficits appreciated. EKG: pending. A&P: 56 yo M [facility] for [facility] 1. Psych. Plan per Psychiatry. Obtain baseline EKG to assure the safety of psychiatric medications as they can prolong the QT interval. 2. H/O Dry eyes. Continue artificial tears if needed. 3. Psoriasis. Patient states he follows with rheumatology in [place]. Pt states he remains on Stelara injection 45 mg subcutaneous every 3 monthly. 4. Follow up with PCP on discharge. 5. History of tattoo done unprofessionally. Patient declines HIV/hepatitis screening at this time. 6. Staff member present throughout exam, melanie Quiñones. Vital Signs Vital Signs Date Time Temp Pulse Resp B/P (MAP) Pulse Ox O2 Delivery O2 Flow Rate FiO2 05/09/17 06:00 97.8 68 16 104/63 (77) 05/08/17 17:22 98 Room Air Laboratory Data Labs 24H Laboratory Tests 2 05/08/17 14:16: Anion Gap 3L, Glomerular Filtration Rate > 60.0, Calcium Level 9.1, Aspartate Amino Transf (AST/SGOT) 18, Alanine Aminotransferase (ALT/SGPT) 18, Alkaline Phosphatase 94, Total Bilirubin 0.6, Direct Bilirubin 0.1, Total Protein 7.5, Albumin 3.8, Albumin/Globulin Ratio 1.03, Thyroid Stimulating Hormone (TSH) 1.440, Salicylates Level 1.8L, Acetaminophen Level < 2.0L, Valproic Acid ( Depakene) Level 49.2L, Ethyl Alcohol Level < 0.003 05/08/17 15:33: Urine Amphetamines Screen NEGATIVE, Urine Benzodiazepines Screen NEGATIVE, Urine Opiates Screen NEGATIVE, Urine Methadone Screen NEGATIVE, Urine Barbiturates Screen NEGATIVE, Urine Phencyclidine Screen NEGATIVE, Urine Cocaine Metabolite Screen NEGATIVE, Urine Cannabinoids Screen NEGATIVE CBC/BMP Laboratory Tests 05/08/17 14:16 Red Blood Count 4.65, Mean Corpuscular Volume 94.7, Mean Corpuscular Hemoglobin 31.2, Mean Corpuscular Hemoglobin Concent 32.9, Red Cell Distribution Width 12.9 Home Medications Scheduled Chlorpromazine HCl (Chlorpromazine HCl) 100 Mg Tab, 100 MG PO QHS Chlorpromazine HCl (Chlorpromazine HCl) 50 Mg Tab, 50 MG PO QHS PRESCRIBED BID, PATIENT ONLY TAKES QHS Divalproex Sodium (Divalproex Sodium ER) 500 Mg Tab, 500 MG PO QHS PRESCRIBED BID, PATIENT TAKES QHS Allergies Coded Allergies: Ethanol (Verified Allergy, Unknown, 11/20/12) Fluoxetine (Verified Allergy, Unknown, 11/20/12) Olanzapine (Verified Allergy, Unknown, 11/20/12) Quetiapine (Verified Allergy, Unknown, 11/20/12) Risperidone (Verified Allergy, Unknown, HIVES, 11/20/12) Sertraline (Verified Allergy, Unknown, 11/20/12) Thioridazine (Verified Allergy, Unknown, 11/20/12) Nancy Anderson May 09, 2017 11:09
[2017-05-09 18:32] VITALS: BP 103/63
[2017-05-09] MEDS: DIVALPROEX 250MG *ER* TAB PO SCH (20:18)
[2017-05-09] MEDS: chlorproMAZINE 25 MG TAB (Q0161) PO SCH ×2 (20:18→20:19)
[2017-05-10 07:16] VITALS: BP 112/67
--- NOTE | 2017-05-10 08:15 | ECGEPIP ---
Stationary ECG Study [facility] Test Date: 2017-05-09 Pat Name: RAKAN MONTALVO Department: Room: [place] [address] Gender: M Show Host: ISABEL : 1960 Requested By: Nancy Anderson Order Number: [id number] Reading MD: Max Alvarado Measurements Intervals [place] Rate: 87 P: 50 MO: 145 QRS: 5 QRSD: 90 T: 16 QT: 343 QTc: 413 Interpretive Statements Normal sinus rhythm Normal EKG No significant change when compared to prior tracing of 10/18/2016 Electronically Signed On 05-10-2017 8:15:09 EDT by Max Alvarado
--- NOTE | 2017-05-10 15:22 | IPN ---
DATE: 05/10/2017 Mr. Arreaga came in exceptionally depressed. His mood is low. He is downcast. He is nonresponsive. He states that he is eating okay. He has slept okay, but he is very depressed about not seeing his children. I have started him on Celexa 20 mg. MENTAL STATUS EXAMINATION: Speech is sparse. Thought process is low. No loose associations. No apparent psychotic thoughts. Judgment and insight are poor. Full oriented. No difficulties with recent and remote memory. Attention and concentration are fair. No disturbances of language. Full fund of knowledge. Modo is low. Affect is sad. IMPRESSION: Schizophrenia.
[2017-05-10 18:26] VITALS: BP 118/64
[2017-05-10] MEDS: chlorproMAZINE 25 MG TAB (Q0161) PO SCH ×2 (20:20)
[2017-05-10] MEDS: DIVALPROEX 250MG *ER* TAB PO SCH (20:20)
[2017-05-11 06:25] VITALS: BP 102/61
[2017-05-11] MEDS: CitaloPRAM (CeleXA) 20 MG TAB PO SCH (09:20)
--- NOTE | 2017-05-11 15:19 | MHIPN ---
DATE: 05/11/2017 Mr. Arreaga continues downcast and concerned about not seeing his children. I added citalopram 20 mg to his medication. He lives in [place] at the [facility]. He is followed by [facility]. MENTAL STATUS EXAMINATION: Speech is sparse. Thought processes are slow. No loose associations. Denies any psychotic thoughts. Judgment and insight are poor. He is fully oriented. Recent and remote memory intact. Attention and concentration intact. He has a full fund of knowledge. Mood is low, affect is downcast. Diagnosis: Schizophrenia PLAN: To return to [facility] with some hopeful improvement in mood. JEN
[2017-05-11 18:48] VITALS: BP 116/62
[2017-05-11] MEDS: DIVALPROEX 250MG *ER* TAB PO SCH (21:41)
[2017-05-11] MEDS: chlorproMAZINE 25 MG TAB (Q0161) PO SCH ×2 (21:41→21:43)
[2017-05-12 06:37] VITALS: BP 116/63
[2017-05-12] MEDS: CitaloPRAM (CeleXA) 20 MG TAB PO SCH (08:29)
--- NOTE | 2017-05-12 12:09 | MHIPN ---
DATE OF SERVICE: 05/12/2017 I met with staff today and discussed Mr. Arreaga. Mr. Arreaga has had numerous admissions. He continues to be downcast concerning his children and his inability to visit them following having smoked marijuana with one of his children. I have begun him on citalopram 20 mg and he has had no significant side effects at this time. MENTAL STATUS EXAMINATION: Speech is slow. Thought process is slow. No loose associations. No psychotic thoughts. Judgment and insight are fair. Patient is fully oriented. Recent and remote memory intact. Attention and concentration are within normal limits. No disturbance of language. Patient has a full fund of knowledge. Patient is downcast with poor contact. Mood is low. Affect is sad. PLAN: Continue observation and continue present treatment with perhaps raising citalopram dosage. DIAGNOSIS: Chronic schizophrenia.
[2017-05-12 18:00] VITALS: BP 102/63
[2017-05-12] MEDS: DIVALPROEX 250MG *ER* TAB PO SCH (21:59)
[2017-05-12] MEDS: chlorproMAZINE 25 MG TAB (Q0161) PO SCH ×2 (22:00)
[2017-05-13 06:27] VITALS: BP 124/71
[2017-05-13] MEDS: CitaloPRAM (CeleXA) 20 MG TAB PO SCH (08:34)
--- NOTE | 2017-05-13 11:13 | IPN ---
DATE: 05/13/2017 Mr. Arreaga maintains his downcast appearance. He is feeling no improvement and states that he did not expect to get better in two days. As a matter of fact, he has been here 6 days. When I noted that to him, he did smile. It is my understanding that it takes him a bit of time to improve. Right now he is focused only on the fact that he cannot go home or see his children based on his previous conduct. MENTAL STATUS EXAMINATION: Speech is slow. Thought processes show a poverty of thought. No loose associations. No psychotic thoughts. Judgment and insight are poor. Fully oriented. Recent and remote memory intact. No disturbance of attention, concentration. No disturbance of language. Full fund of knowledge. Mood is low. Affect is sad. DIAGNOSIS: Chronic schizophrenia. PLAN: Increase Celexa to 30 mg.
[2017-05-13 18:00] VITALS: BP 108/64
[2017-05-13] MEDS: DIVALPROEX 250MG *ER* TAB PO SCH (20:52)
[2017-05-13] MEDS: chlorproMAZINE 25 MG TAB (Q0161) PO SCH ×2 (20:52)
[2017-05-14 07:13] VITALS: BP 119/64
[2017-05-14] MEDS: CitaloPRAM (CeleXA) 10 MG TABLET PO SCH (09:09)
--- NOTE | 2017-05-14 16:19 | MHIPN ---
DATE: 05/14/2017 Chacorta Arreaga continues to look downcast and continues to state that he wants to see his family. This has been his continued discussion throughout his stay. He is presently on citalopram 30 mg every morning. He is having no psychotic experiences, but I have not seen any significant improvement in mood since patient is focused solely on seeing his family and children. MENTAL STATUS EXAMINATION: Speech is slow. Thought process is slow. No loose associations. No psychotic thoughts. Judgment and insight are poor. He is fully oriented. Recent and remote memory intact. Attention and concentration are normal. No disturbance of language. He has a full fund of knowledge. Mood is low. Affect is sad. DIAGNOSIS: Chronic schizophrenia. PLAN: Continued observation and medication with eventual placement to home.
[2017-05-14 18:00] VITALS: BP 116/64
[2017-05-14] MEDS: DIVALPROEX 250MG *ER* TAB PO SCH (20:22)
[2017-05-14] MEDS: chlorproMAZINE 25 MG TAB (Q0161) PO SCH ×2 (20:22)
[2017-05-15 06:00] VITALS: BP 110/68
[2017-05-15] MEDS: CitaloPRAM (CeleXA) 10 MG TABLET PO SCH (08:54)
--- NOTE | 2017-05-15 12:58 | MHIPN ---
DATE: 05/15/2017 Mr. Arreaga reports today that he is feeling better in the evening. I have then increased his Celexa to 40 mg. He continues generally downcast during the day, but a mild improvement in his affect is noted. MENTAL STATUS: Speech is slow. It is showing a poverty of thought. No loose associations. No psychotic thoughts at this time. Judgment and insight are fair. The patient is fully oriented. No disturbance of recent or remote memory. No disturbance of attention or concentration. No disturbance of language. Fund of knowledge is full. Mood is low. Affect is slightly brighter, but patient for the first time admits he is feeling better in the evening. IMPRESSION: Schizophrenia. PLAN: To discharge when patient is in improved condition.
[2017-05-15 18:00] VITALS: BP 115/69
[2017-05-15] MEDS: chlorproMAZINE 25 MG TAB (Q0161) PO SCH ×2 (21:35)
[2017-05-15] MEDS: DIVALPROEX 250MG *ER* TAB PO SCH (21:36)
[2017-05-16 06:00] VITALS: BP 110/65
--- NOTE | 2017-05-16 09:56 | MHIPN ---
DATE: 05/16/2017 Mr. Arreaga, for the first time today, states that he is feeling better. He is smiling. He had stated that his afternoons had been going better yesterday and today he has a brighter affect with an improved mood. MENTAL STATUS EXAMINATION: Speech is normal. No disturbance of thought processes. No loose associations. No abnormal or psychotic thoughts noted. Judgment and insight improved. Fully oriented. Recent and remote memory intact. Attention and concentration are good. No disturbance of language. Full fund of knowledge. Mood is good. Affect is bright. DIAGNOSIS: Chronic schizophrenia. Continue medications; citalopram 40 mg in the morning, as well as the patient's routine medications that he was taking at home, which included Depakote and chlorpromazine.
[2017-05-16] MEDS: CitaloPRAM (CeleXA) 20 MG TAB PO SCH (10:27)
[2017-05-16 18:36] VITALS: BP 92/58
[2017-05-16] MEDS: DIVALPROEX 250MG *ER* TAB PO SCH (21:25)
[2017-05-16] MEDS: chlorproMAZINE 25 MG TAB (Q0161) PO SCH ×2 (21:25)
[2017-05-17 06:47] VITALS: BP 114/72
[2017-05-17] MEDS: CitaloPRAM (CeleXA) 20 MG TAB PO SCH (08:55)
[2017-05-17 18:00] VITALS: BP 102/54
[2017-05-17] MEDS: chlorproMAZINE 25 MG TAB (Q0161) PO SCH ×2 (20:19)
[2017-05-17] MEDS: DIVALPROEX 250MG *ER* TAB PO SCH (20:19)
[2017-05-18 06:00] VITALS: BP 111/63
[2017-05-18] MEDS: CitaloPRAM (CeleXA) 20 MG TAB PO SCH (08:47)
[2017-05-18 18:00] VITALS: BP 107/55
[2017-05-18] MEDS: DIVALPROEX 250MG *ER* TAB PO SCH (21:09)
[2017-05-18] MEDS: chlorproMAZINE 25 MG TAB (Q0161) PO SCH ×2 (21:10)
[2017-05-19 06:37] VITALS: BP 107/61
[2017-05-19] MEDS: CitaloPRAM (CeleXA) 20 MG TAB PO SCH (09:15)
--- NOTE | 2017-05-19 16:27 | MHIPNPDOC ---
[facility] Progress Note Progress Note DATE OF SERVICE: 05/19/17 HISTORY: . Patient is a 56 years old male with previous diagnosis of schizophrenia that was admitted after having suicidal ideas in the context of social problems regarding his inability to see his children ;currently reported feeling better, denied any symptoms of psychosis or any depressive symptoms. However, he still gets sad when talking about his children. He reports that he can be discharged home as he has support from outpatient case manager officer and friends. Denied any side effects of the medications VITAL SIGNS: See below. NEW TEST RESULTS: . CURRENT MEDICATIONS: See below. MENTAL STATUS EXAMINATION: Patient is a 56-year-old male that looks stated age, casually dressed Speech: Is fluent and coherent Language skills are adequate Thought processes including: Linear. Th goal directed ought content: No ideas of self harm or harm to others. No perceptual disturbances. No delusions elicited Description of abnormal or psychotic thoughts: . No psychosis Judgment: . Fair Insight: very limited, good, fair. poor. Fair Orientation: . Oriented 3 Recent and remote memory: . Intact Attention span and concentration: . Adequate Language: . Fluent Fund of knowledge: . adequate Mood: "ok". Affect: Full range DIAGNOSES: 1. . Chronic schizophrenia 2. . 3. . ASSESSMENT: 56, tearful male with chronic schizophrenia admitted after having suicidal ideas in the context of social stressors currently doing better without any symptoms of psychosis. Her mood Continue current medications. Discharge plan for later this week MANAGEMENT PLAN: . TIME SPENT: minutes. Vital Signs Vital Signs Date Time Temp Pulse Resp B/P (MAP) Pulse Ox O2 Delivery O2 Flow Rate FiO2 05/19/17 06:37 98.9 75 16 107/61 (76) 05/14/17 10:02 Room Air Current Medications Current Medications Acetaminophen (Tylenol Tab) 650 mg Q6HP PRN PO HEADACHE or DISCOMFORT; Start at 16:15; Stop 06/07/17 at 16:14 Al Hydrox/Mg Hydrox/Simethicone (Mylanta) 30 ml Q4HP PRN PO HEARTBURN/ INDIGESTION; Start 05/08/17 at 16:15; Stop 06/07/17 at 16:14 Chlorpromazine HCl (Thorazine) 50 mg QHS PO Last administered on 05/18/17t 21: 10; Start 05/08/17 at 21:00; Stop 06/07/17 at 20:59 Chlorpromazine HCl (Thorazine) 100 mg QHS PO Last administered on 05/18/17 21: 10; Start 05/08/17 at 21:00; Stop 06/07/17 at 20:59 Citalopram Hydrobromide (CeleXA) 20 mg QAM PO Last administered on 05/13/17 08 :34; Start 05/11/17 at 09:00; Stop 05/13/17 at 11:03; Status DC Citalopram Hydrobromide (CeleXA) 30 mg QAM PO Last administered on 05/15/17 08 :54; Start 05/14/17 at 09:00; Stop 05/15/17 at 11:56; Status DC Citalopram Hydrobromide (CeleXA) 40 mg QAM PO Last administered on 05/19/17 09 :15; Start 05/16/17 at 09:00; Stop 06/15/17 at 08:59 Divalproex Sodium (Depakote Er) 500 mg QHS PO Last administered on 05/18/17 21 :09; Start 05/08/17 at 21:00; Stop 06/07/17 at 20:59 Home Med (Med Rec Complete!) ASDIRECTED XX ; Start 05/08/17 at 17:30; Stop at 17:31; Status DC Magnesium Hydroxide (Milk Of Magnesia) 30 ml DAILYPRN PRN PO CONSTIPATION; Start 05/08/17 at 16:15; Stop 06/07/17 at 16:14 Trazodone HCl (Desyrel) 50 mg QHSP PRN PO INSOMNIA; Start 05/08/17 at 16:15; Stop 06/07/17 at 16:14 Allergies Coded Allergies: Ethanol (Verified Allergy, Unknown, 11/20/12) Fluoxetine (Verified Allergy, Unknown, 11/20/12) Olanzapine (Verified Allergy, Unknown, 11/20/12) Quetiapine (Verified Allergy, Unknown, 11/20/12) Risperidone (Verified Allergy, Unknown, HIVES, 11/20/12) Sertraline (Verified Allergy, Unknown, 11/20/12) Thioridazine (Verified Allergy, Unknown, 11/20/12) MAXWELL DICKERSON MD May 19, 2017 16:27
[2017-05-19 18:17] VITALS: BP 104/60
[2017-05-19] MEDS: chlorproMAZINE 25 MG TAB (Q0161) PO SCH ×2 (20:57)
[2017-05-19] MEDS: DIVALPROEX 250MG *ER* TAB PO SCH (20:57)
[2017-05-20 06:48] VITALS: BP 121/67
[2017-05-20] MEDS: CitaloPRAM (CeleXA) 20 MG TAB PO SCH (09:49)
--- NOTE | 2017-05-20 14:15 | MHIPNPDOC ---
[facility] Progress Note Progress Note DATE OF SERVICE: 05/20/17 HISTORY: . HISTORY: . Patient is a 56 years old male with previous diagnosis of schizophrenia that was admitted after having suicidal ideas in the context of social problems regarding his inability to see his children ;currently reported feeling better, denied any symptoms of psychosis or any depressive symptoms. He reports that he can be discharged home as soon as possible as he has support from family service caseworker officer and friends. Denied any side effects of the medications VITAL SIGNS: See below. NEW TEST RESULTS: . CURRENT MEDICATIONS: See below. MENTAL STATUS EXAMINATION: Patient is a 56-year-old male that looks stated age, casually dressed Speech: Is fluent and coherent Language skills are adequate Thought processes including: Linear. Th goal directed ought content: No ideas of self harm or harm to others. No perceptual disturbances. No delusions elicited Description of abnormal or psychotic thoughts: . No psychosis Judgment: . Fair Insight: very limited, good, fair. poor. Fair Orientation: . Oriented 3 Recent and remote memory: . Intact Attention span and concentration: . Adequate Language: . Fluent Fund of knowledge: . adequate Mood: "ok". Affect: Full range DIAGNOSES: 1. . Chronic schizophrenia 2. . 3. . ASSESSMENT: 56, male with chronic schizophrenia admitted after having suicidal ideas in the context of social stressors currently doing better without any symptoms of psychosis or ideas of self harm Continue current medications. Discharge plan for this week MANAGEMENT PLAN: . TIME SPENT: 25 minutes. Vital Signs Vital Signs Date Time Temp Pulse Resp B/P (MAP) Pulse Ox O2 Delivery O2 Flow Rate FiO2 05/20/17 06:48 98.9 61 14 121/67 (85) 05/14/17 10:02 Room Air Current Medications Current Medications Acetaminophen (Tylenol Tab) 650 mg Q6HP PRN PO HEADACHE or DISCOMFORT; Start at 16:15; Stop 06/07/17 at 16:14 Al Hydrox/Mg Hydrox/Simethicone (Mylanta) 30 ml Q4HP PRN PO HEARTBURN/ INDIGESTION; Start 05/08/17 at 16:15; Stop 06/07/17 at 16:14 Chlorpromazine HCl (Thorazine) 50 mg QHS PO Last administered on 05/19/17t 20: 57; Start 05/08/17 at 21:00; Stop 06/07/17 at 20:59 Chlorpromazine HCl (Thorazine) 100 mg QHS PO Last administered on 05/19/17 20: 57; Start 05/08/17 at 21:00; Stop 06/07/17 at 20:59 Citalopram Hydrobromide (CeleXA) 20 mg QAM PO Last administered on 05/13/17 08 :34; Start 05/11/17 at 09:00; Stop 05/13/17 at 11:03; Status DC Citalopram Hydrobromide (CeleXA) 30 mg QAM PO Last administered on 05/15/17 08 :54; Start 05/14/17 at 09:00; Stop 05/15/17 at 11:56; Status DC Citalopram Hydrobromide (CeleXA) 40 mg QAM PO Last administered on 05/20/17 09 :49; Start 05/16/17 at 09:00; Stop 06/15/17 at 08:59 Divalproex Sodium (Depakote Er) 500 mg QHS PO Last administered on 05/19/17 20 :57; Start 05/08/17 at 21:00; Stop 06/07/17 at 20:59 Home Med (Med Rec Complete!) ASDIRECTED XX ; Start 05/08/17 at 17:30; Stop at 17:31; Status DC Magnesium Hydroxide (Milk Of Magnesia) 30 ml DAILYPRN PRN PO CONSTIPATION; Start 05/08/17 at 16:15; Stop 06/07/17 at 16:14 Trazodone HCl (Desyrel) 50 mg QHSP PRN PO INSOMNIA; Start 05/08/17 at 16:15; Stop 06/07/17 at 16:14 Allergies Coded Allergies: Ethanol (Verified Allergy, Unknown, 11/20/12) Fluoxetine (Verified Allergy, Unknown, 11/20/12) Olanzapine (Verified Allergy, Unknown, 11/20/12) Quetiapine (Verified Allergy, Unknown, 11/20/12) Risperidone (Verified Allergy, Unknown, HIVES, 11/20/12) Sertraline (Verified Allergy, Unknown, 11/20/12) Thioridazine (Verified Allergy, Unknown, 11/20/12) MAXWELL DICKERSON MD May 20, 2017 14:15
[2017-05-20 18:00] VITALS: BP 110/74
[2017-05-20] MEDS: chlorproMAZINE 25 MG TAB (Q0161) PO SCH ×2 (20:41)
[2017-05-20] MEDS: DIVALPROEX 250MG *ER* TAB PO SCH (20:41)
[2017-05-21 06:25] VITALS: BP 93/57
[2017-05-21] MEDS: CitaloPRAM (CeleXA) 20 MG TAB PO SCH (08:19)
--- NOTE | 2017-05-21 14:52 | MHIPNPDOC ---
[facility] Progress Note Progress Note DATE OF SERVICE: 05/21/17 HISTORY: . Patient is a 56 years old male with previous diagnosis of schizophrenia that was admitted after having suicidal ideas in the context of social problems regarding his inability to see his children ;he is doing fine, denied any symptoms of psychosis or any depressive symptoms. Denied any side effects of the medications. He is more comfortable when talking about his children . VITAL SIGNS: See below. NEW TEST RESULTS: . CURRENT MEDICATIONS: See below. MENTAL STATUS EXAMINATION: Patient is a 56-year-old male that looks stated age, casually dressed Speech: Is fluent and coherent Language skills are adequate Thought processes including: Linear. Th goal directed ought content: No ideas of self harm or harm to others. No perceptual disturbances. No delusions elicited Description of abnormal or psychotic thoughts: . No psychosis Judgment: . Fair Insight: very limited, good, fair. poor. Fair Orientation: . Oriented 3 Recent and remote memory: . Intact Attention span and concentration: . Adequate Language: . Fluent Fund of knowledge: . adequate Mood: "ok". Affect: Full range DIAGNOSES: 1. . Chronic schizophrenia 2. . 3. . ASSESSMENT: 56, male with chronic schizophrenia admitted after having suicidal ideas in the context of social stressors currently doing better without any symptoms of psychosis or ideas of self harm Continue current medications. Discharge plan for tomorrow MANAGEMENT PLAN: . TIME SPENT: 25 minutes. Vital Signs Vital Signs Date Time Temp Pulse Resp B/P (MAP) Pulse Ox O2 Delivery O2 Flow Rate FiO2 05/21/17 06:25 98.4 70 20 93/57 (69) Current Medications Current Medications Acetaminophen (Tylenol Tab) 650 mg Q6HP PRN PO HEADACHE or DISCOMFORT; Start at 16:15; Stop 06/07/17 at 16:14 Al Hydrox/Mg Hydrox/Simethicone (Mylanta) 30 ml Q4HP PRN PO HEARTBURN/ INDIGESTION; Start 05/08/17 at 16:15; Stop 06/07/17 at 16:14 Chlorpromazine HCl (Thorazine) 50 mg QHS PO Last administered on 05/20/17 20: 41; Start 05/08/17 at 21:00; Stop 06/07/17 at 20:59 Chlorpromazine HCl (Thorazine) 100 mg QHS PO Last administered on 05/20/17 20: 41; Start 05/08/17 at 21:00; Stop 06/07/17 at 20:59 Citalopram Hydrobromide (CeleXA) 20 mg QAM PO Last administered on 05/13/17 08 :34; Start 05/11/17 at 09:00; Stop 05/13/17 at 11:03; Status DC Citalopram Hydrobromide (CeleXA) 30 mg QAM PO Last administered on 05/15/17 08 :54; Start 05/14/17 at 09:00; Stop 05/15/17 at 11:56; Status DC Citalopram Hydrobromide (CeleXA) 40 mg QAM PO Last administered on 05/21/17 08 :19; Start 05/16/17 at 09:00; Stop 06/15/17 at 08:59 Divalproex Sodium (Depakote Er) 500 mg QHS PO Last administered on 05/20/17 20 :41; Start 05/08/17 at 21:00; Stop 06/07/17 at 20:59 Home Med (Med Rec Complete!) ASDIRECTED XX ; Start 05/08/17 at 17:30; Stop at 17:31; Status DC Magnesium Hydroxide (Milk Of Magnesia) 30 ml DAILYPRN PRN PO CONSTIPATION; Start 05/08/17 at 16:15; Stop 06/07/17 at 16:14 Trazodone HCl (Desyrel) 50 mg QHSP PRN PO INSOMNIA; Start 05/08/17 at 16:15; Stop 06/07/17 at 16:14 Allergies Coded Allergies: Ethanol (Verified Allergy, Unknown, 11/20/12) Fluoxetine (Verified Allergy, Unknown, 11/20/12) Olanzapine (Verified Allergy, Unknown, 11/20/12) Quetiapine (Verified Allergy, Unknown, 11/20/12) Risperidone (Verified Allergy, Unknown, HIVES, 11/20/12) Sertraline (Verified Allergy, Unknown, 11/20/12) Thioridazine (Verified Allergy, Unknown, 11/20/12) MAXWELL DICKERSON MD May 21, 2017 14:52
--- NOTE | 2017-05-21 15:03 | MHDSPDOC ---
[facility] Discharge Summary Discharge Summary DATE OF ADMISSION: May 08, 2017 at 16:15 DATE OF DISCHARGE: 05/22/17 at 12:00 DISCHARGE DIAGNOSES: 1. . Chronic schizophrenia 2. . Cannabis abuse versus dependence REASON FOR ADMISSION: Suicidal ideas Mr. Arreaga is a 56-year-old man who states he is diagnosed with schizophrenia. He states that his counseling case manager came to his house yesterday and have changed the date where he is unable to see his children. He states because of that he became suicidal and he was brought to the hospital. He presently has an order of protection where he cannot see his children due to having used marijuana with one of his sons in October. CONSULTANTS INVOLVED: None TREATMENT AND PROGRESS ON THE UNIT : . Patient presented with symptoms of depression and suicidal ideas in the context of recent social stressors also cannot be rule out the influence of cannabis in his mood symptoms. He denied any symptoms of psychosis. Didn't have any thought process disorder. No perceptual disturbances did not elicit any delusions. Patient was continue taking the antipsychotic medication was started in antidepressant medication with significant improvement after several days. Patient was participating in the milieu, interacting with other patients in the unit. He was able to talk about the situation with his children, been more acceptance of the reality and the legal consequences that he is facing. He will continue follow-up as outpatient in the clinic that he was attending before coming to the hospital HOSPITAL COURSE: Patient was admitted with a depressed mood, anhedonia, low energy, and suicidal ideas with no specific work. He remained isolated with poor eye contact, depressed mood for several days. He was started in citalopram antidepressant medication and continue with his antipsychotic medication. He was feeling better , became more interactive in groups and in the milieu. He was more accepting THE situation that led him to have suicidal ideas. He feels that he has a good support network that includes his field nurse case manager and his jailer/training officer. Patient will continue outpatient follow-up in the clinic that he was seeing before coming to the hospital DISCHARGE ASSESSMENT: 66 years old male with history of schizophrenia who was admitted with depressed mood, low energy, anhedonia and active suicidal ideas with a plan in the context of social stressors that include inability to see his children. He also has a pending case with child protective services related to use of drugs with minors MENTAL STATUS EXAMINATION ON DISCHARGE: Patient is a 56-year-old male that looks stated age, casually dressed Speech: Is fluent and coherent Language skills are adequate Thought processes including: Linear. Th goal directed ought content: No ideas of self harm or harm to others. No perceptual disturbances. No delusions elicited Description of abnormal or psychotic thoughts: . No psychosis Judgment: . Fair Insight: very limited, good, fair. poor. Fair Orientation: . Oriented 3 Recent and remote memory: . Intact Attention span and concentration: . Adequate Language: . Fluent Fund of knowledge: . adequate Mood: "ok". Affect: Full range MEDICATIONS ON DISCHARGE: Chlorpromazine HCl (Thorazine) 50 mg QHS PO Chlorpromazine HCl (Thorazine) 100 mg QHS PO Citalopram Hydrobromide (CeleXA) 40 mg QAM PO Divalproex Sodium (Depakote Er) 500 mg QHS PO Trazodone HCl (Desyrel) 50 mg QHSP PRN PO INSOMNIA; PLAN/FOLLOWUP ARRANGEMENTS: . He lives in [place] at the [facility]. He is followed by [facility]. The amount of time spent in the coordination of care for this patient was approximately minutes. Vital Signs/I&Os Vital Signs Date Time Temp Pulse Resp B/P (MAP) Pulse Ox O2 Delivery O2 Flow Rate FiO2 05/21/17 06:25 98.4 70 20 93/57 (69) Medications Scheduled Chlorpromazine HCl (Chlorpromazine HCl) 100 Mg Tab, 100 MG PO QHS, (Reported) Chlorpromazine HCl (Chlorpromazine HCl) 50 Mg Tab, 50 MG PO QHS, (Reported) PRESCRIBED BID, PATIENT ONLY TAKES QHS Chlorpromazine HCl (Chlorpromazine HCl) 25 Mg Tab, 50 MG PO QHS for PSYCHOSIS, # 14 Chlorpromazine HCl (Chlorpromazine HCl) 25 Mg Tab, 100 MG PO QHS for PSYCHOSIS, #14 Citalopram Hydrobromide (Celexa) 20 Mg Tab, 40 MG PO QAM for DEPRESSION, #14 Divalproex Sodium (Divalproex Sodium ER) 500 Mg Tab, 500 MG PO QHS for MOOD STABILIZATION, #14 PRESCRIBED BID, PATIENT TAKES QHS Divalproex Sodium (Depakote ER) 250 Mg Tab, 500 MG PO QHS for MOOD, #14 Scheduled PRN Trazodone HCl (Trazodone HCl) 50 Mg Tab, 50 MG PO QHSP PRN for INSOMNIA, #14 Allergies Coded Allergies: Ethanol (Verified Allergy, Unknown, 11/20/12) Fluoxetine (Verified Allergy, Unknown, 11/20/12) Olanzapine (Verified Allergy, Unknown, 11/20/12) Quetiapine (Verified Allergy, Unknown, 11/20/12) Risperidone (Verified Allergy, Unknown, HIVES, 11/20/12) Sertraline (Verified Allergy, Unknown, 11/20/12) Thioridazine (Verified Allergy, Unknown, 11/20/12) MAXWELL DICKERSON MD May 21, 2017 14:54
[2017-05-21 18:57] VITALS: BP 108/63
[2017-05-21] MEDS: DIVALPROEX 250MG *ER* TAB PO SCH (21:13)
[2017-05-21] MEDS: chlorproMAZINE 25 MG TAB (Q0161) PO SCH ×2 (21:14→21:26)
[2017-05-22 07:06] VITALS: BP 108/60
[2017-05-22] MEDS: CitaloPRAM (CeleXA) 20 MG TAB PO SCH (08:12)
[2017-05-22] MEDS ORDERED: CELE20TA PO (09:57)
[2017-05-22] MEDS ORDERED: CHLOR25TA PO (09:57)
[2017-05-22] MEDS ORDERED: DIVA500T9 PO (09:57)
[2017-05-22] MEDS ORDERED: TRAZO50TA PO (09:57)
[2017-05-22] MEDS ORDERED: DEPA250T2 PO (09:59)
== END 2017-05-22 11:50 | disposition home or self-care (01) | DRG 885 ==
LOC: M ED 13:26 → M ED INP 16:15 → M PSY 18:05
PROVIDERS: ADMIT Psychiatry & Neurology Psychiatry; ATTEND Psychiatry & Neurology Psychiatry
DX: F20.5 Residual schizophrenia (principal); F12.90 Cannabis use, unspecified, uncomplicated; Z79.899 Other long term (current) drug therapy; Z88.8 Allergy status to other drugs, medicaments and biological substances; L40.8 Other psoriasis

== ENCOUNTER 2017-09-23 11:36 | Inpatient (IN) | payer MEDICARE, MEDICAID ==
[2017-09-23 12:31] LABS: HEMATOCRIT 44.3 % (42.0-52.0); HEMOGLOBIN 15.5 g/dl (14.0-18.0); MEAN CORPUSCULAR HEMOGLOBIN 30.6 pg (27.0-33.0); MEAN CORPUSCULAR VOLUME 87.4 fl (80.0-96.0); PLATELET COUNT, AUTOMATED 298 10^3/uL (150-450); RED BLOOD COUNT 5.07 10^6/uL (4.30-6.10); RED CELL DISTRIBUTION WIDTH 12.9 % (11.5-14.5); WHITE BLOOD COUNT 8.1 10^3/uL (4.0-10.0)
[2017-09-23 12:46] LABS: VALPROIC ACID (DEPAKOTE) 51.4 UG/ML (50.0-100.0)
[2017-09-23 12:52] LABS: ALBUMIN 3.9 GM/DL (3.2-5.2); ALBUMIN/GLOBULIN RATIO 1.08 (1.00-1.93); ALKALINE PHOSPHATASE 92 U/L (45-117); ALT/SGPT 28 U/L (12-78); ANION GAP 9 MEQ/L (8-16); AST/SGOT 20 U/L (7-37); BILIRUBIN,DIRECT 0.1 MG/DL (0.0-0.2); BILIRUBIN,TOTAL 0.5 MG/DL (0.2-1.0); BLOOD UREA NITROGEN 10 MG/DL (7-18); CALCIUM LEVEL 9.3 MG/DL (8.5-10.1); CARBON DIOXIDE LEVEL 27 MEQ/L (21-32); CHLORIDE LEVEL 102 MEQ/L (98-107); CREATININE FOR GFR 1.16 MG/DL (0.70-1.30); ETHYL ALCOHOL (ETHANOL) 0.004 % (0.000-0.010); GLOMERULAR FILTRATION RATE > 60.0 (>56); GLUCOSE, FASTING 101 MG/DL (70-100); POTASSIUM SERUM 4.3 MEQ/L (3.5-5.1); SALICYLATE LEVEL < 1.7 MG/DL (5.0-30.0); SODIUM LEVEL 138 MEQ/L (136-145); TOTAL PROTEIN 7.5 GM/DL (6.4-8.2)
[2017-09-23 12:56] LABS: AMPHETAMINES LEVEL URINE NEGATIVE (NEGATIVE); BARBITURATES URINE NEGATIVE (NEGATIVE); BENZODIAZEPINES URINE NEGATIVE (NEGATIVE); CANNABINOIDS URINE NEGATIVE (NEGATIVE); COCAINE METABOLITE URINE NEGATIVE (NEGATIVE); METHADONE URINE NEGATIVE (NEGATIVE); OPIATES URINE NEGATIVE (NEGATIVE); PHENCYCLIDINE URINE NEGATIVE (NEGATIVE)
[2017-09-23 13:03] LABS: ACETAMINOPHEN LEVEL < 2.0 UG/ML (10.0-30.0)
[2017-09-23] MEDS ORDERED: MOM 30ML SUSPENSION UDC PO (17:45)
[2017-09-23] MEDS ORDERED: MAALOX 30 ML SUSP *UDC PO (17:45)
[2017-09-23] MEDS: chlorproMAZINE 25 MG TAB (Q0161) PO (21:47)
[2017-09-23] MEDS: DIVALPROEX 500 MG TAB PO (21:48)
[2017-09-24] MEDS: chlorproMAZINE 25 MG TAB (Q0161) PO (21:09)
[2017-09-24] MEDS: DIVALPROEX 500 MG TAB PO (21:09)
[2017-09-24] MEDS: traZODone 50 MG TAB PO (21:09)
[2017-09-24] MEDS: ACETAMINOPHEN TAB 650MG DOSE (2X325MG) PO (21:10)
[2017-09-25] MEDS: traZODone 50 MG TAB PO (21:14)
[2017-09-25] MEDS: DIVALPROEX 500 MG TAB PO (21:14)
[2017-09-25] MEDS: chlorproMAZINE 25 MG TAB (Q0161) PO (21:14)
[2017-09-26] MEDS: chlorproMAZINE 25 MG TAB (Q0161) PO (20:19)
[2017-09-26] MEDS: DIVALPROEX 500 MG TAB PO (20:20)
[2017-09-26] MEDS: EUCERIN 120GM CREAM TOP (21:23)
[2017-09-27] MEDS: EUCERIN 120GM CREAM TOP ×2 (09:57→21:02)
[2017-09-27] MEDS: chlorproMAZINE 25 MG TAB (Q0161) PO ×2 (12:09→21:02)
[2017-09-27] MEDS: DIVALPROEX 500 MG TAB PO (21:02)
[2017-09-28] MEDS: EUCERIN 120GM CREAM TOP ×2 (09:12→20:23)
[2017-09-28] MEDS: chlorproMAZINE 25 MG TAB (Q0161) PO ×2 (09:12→20:22)
[2017-09-28] MEDS: DIVALPROEX 500 MG TAB PO (20:22)
[2017-09-29] MEDS: chlorproMAZINE 25 MG TAB (Q0161) PO ×2 (08:46→21:30)
[2017-09-29] MEDS: EUCERIN 120GM CREAM TOP ×2 (08:46→21:00)
[2017-09-29] MEDS: DIVALPROEX 500 MG TAB PO (21:30)
[2017-09-30] MEDS: EUCERIN 120GM CREAM TOP ×2 (08:32→21:00)
[2017-09-30] MEDS: chlorproMAZINE 25 MG TAB (Q0161) PO ×2 (08:32→21:13)
[2017-09-30] MEDS: DIVALPROEX 500 MG TAB PO (21:12)
[2017-10-01] MEDS: chlorproMAZINE 25 MG TAB (Q0161) PO ×2 (08:47→20:27)
[2017-10-01] MEDS: EUCERIN 120GM CREAM TOP ×2 (09:00→20:28)
[2017-10-01] MEDS: DIVALPROEX 500 MG TAB PO (20:28)
[2017-10-02] MEDS: chlorproMAZINE 25 MG TAB (Q0161) PO ×2 (07:59→20:51)
[2017-10-02] MEDS: EUCERIN 120GM CREAM TOP ×2 (08:00→20:51)
[2017-10-02] MEDS: DIVALPROEX 500 MG TAB PO (20:50)
[2017-10-03] MEDS: EUCERIN 120GM CREAM TOP ×2 (08:53→21:00)
[2017-10-03] MEDS: chlorproMAZINE 25 MG TAB (Q0161) PO ×2 (08:54→20:41)
[2017-10-03] MEDS: DIVALPROEX 500 MG TAB PO (20:41)
[2017-10-04] MEDS: chlorproMAZINE 25 MG TAB (Q0161) PO ×2 (08:47→20:34)
[2017-10-04] MEDS: EUCERIN 120GM CREAM TOP ×2 (08:47→20:35)
[2017-10-04] MEDS: DIVALPROEX 500 MG TAB PO (20:34)
[2017-10-05] MEDS: EUCERIN 120GM CREAM TOP ×2 (08:27→20:32)
[2017-10-05] MEDS: chlorproMAZINE 25 MG TAB (Q0161) PO ×2 (08:27→20:32)
[2017-10-05] MEDS: DIVALPROEX 500 MG TAB PO (20:32)
[2017-10-06] MEDS: EUCERIN 120GM CREAM TOP (08:39)
[2017-10-06] MEDS: chlorproMAZINE 25 MG TAB (Q0161) PO (08:41)
== END 2017-10-06 15:06 | disposition home or self-care (01) | DRG 885 ==
LOC: M PSY 09-24 07:39 → M ED 11:36 → M ED INP 15:04 → M PSY 16:12
DX: F20.0 Paranoid schizophrenia (principal); F33.2 Major depressive disorder, recurrent severe without psychotic features; F43.10 Post-traumatic stress disorder, unspecified; L40.9 Psoriasis, unspecified; H04.123 Dry eye syndrome of bilateral lacrimal glands; Z62.810 Personal history of physical and sexual abuse in childhood; Z81.8 Family history of other mental and behavioral disorders; Z79.899 Other long term (current) drug therapy; Z88.8 Allergy status to other drugs, medicaments and biological substances

== ENCOUNTER → 2022-09-10 | Outpatient (CLI) | payer MEDICARE, MEDICAID ==
[~2022-09-10] MED LIST changes: -/TAMS4CA; -ARTI99.0 OU; +ASPI-1 PO; -ASPI325T PO; +CELE20TA PO; +CHLO100T30 PO; +DEPA250T2 PO; +DEPA500T2 PO; +DIVA500T9 PO; +FLOM0.4C39; +POLYOPD OU; +TRAZ1TAB10 PO
== END ==
LOC: M CARPUL 09:06
PROVIDERS: ATTEND Internal Medicine Critical Care Medicine
DX: J84.10 Pulmonary fibrosis, unspecified (principal)

== ENCOUNTER 2022-10-16 06:01 | Day surgery (SDC) | payer MEDICARE, MEDICAID ==
[~2022-10-16] VITALS: Ht 170.2 cm; Wt 90.7 kg
[~2022-10-16 06:01] MED LIST changes: +ARTIDRO4 OU; +PANT40TA29 PO; -POLYOPD OU; +PRED20TA PO; +TREM100I SC
[2022-10-16] MEDS ORDERED: LIDOCAINE 1% SDV 5ML VIAL SC PRN (06:45)
[2022-10-16] MEDS ORDERED: LR 1,000 ML IV SCH ×2 (06:45→08:25)
[2022-10-16] MEDS ORDERED: fentaNYL 100 MCG/2 ML INJECTION As Ordered ONE (07:10)
[2022-10-16] MEDS ORDERED: MIDAZOLAM INJ 2MG/2ML VIAL As Ordered ONE (07:10)
[2022-10-16] MEDS ORDERED: propofoL 200 MG/20 ML VIAL As Ordered ONE (07:10)
[2022-10-16] MEDS ORDERED: LIDOCAINE 2% 100MG/5ML SDV (FOR ANES.) As Ordered ONE (07:10)
[2022-10-16] MEDS ORDERED: ROCURONIUM BROMIDE 50MG/5ML VIAL As Ordered ONE (07:10)
[2022-10-16] MEDS ORDERED: ONDANSETRON 4MG 2ML VIAL As Ordered ONE (07:11)
[2022-10-16] MEDS ORDERED: CETACAINE SPRAY 5GM As Ordered ONE (07:16)
[2022-10-16] MEDS ORDERED: EPINEPHrine 1MG/10ML SYRINGE 1.5IN As Ordered ONE (07:17)
[2022-10-16] MEDS ORDERED: THROMBIN 5,000 UNITS VIAL As Ordered ONE (07:17)
[2022-10-16] MEDS ORDERED: ALBUTEROL SULFATE 2.5MG/0.5ML INH NEB SOLN As Ordered ONE (07:27)
[2022-10-16] MEDS ORDERED: LIDOCAINE PRES-FREE 2% 10ML AMP INH ONE (07:30)
[2022-10-16] MEDS ORDERED: LIDOCAINE PRES-FREE 2% 10ML AMP As Ordered ONE (07:30)
[2022-10-16] MEDS ORDERED: ALBUTEROL SULFATE 2.5MG/0.5ML INH NEB SOLN INH ONE (07:30)
[2022-10-16] MEDS ORDERED: VASOPRESSIN INJ 20UNITS/ML 1ML VIAL As Ordered ONE (07:58)
[2022-10-16] MEDS ORDERED: SUGAMMADEX SODIUM 500 MG/5 ML VIAL (BRIDION) As Ordered ONE (08:10)
[2022-10-16] MEDS ORDERED: fentaNYL 100 MCG/2 ML INJECTION IV PRN (08:25)
[2022-10-16] MEDS ORDERED: oxyCODONE 5MG TAB PO PRN (08:25)
[2022-10-16] MEDS ORDERED: ONDANSETRON 4MG 2ML VIAL IV PRN (08:25)
[2022-10-16 10:00] VITALS: BP 110/77
== END 2022-10-16 10:10 | disposition home or self-care (01) ==
LOC: M SDC 06:01
PROVIDERS: ATTEND Internal Medicine Critical Care Medicine
DX: J84.10 Pulmonary fibrosis, unspecified (principal); K21.9 Gastro-esophageal reflux disease without esophagitis; F20.9 Schizophrenia, unspecified; L40.9 Psoriasis, unspecified; Z79.899 Other long term (current) drug therapy; Z88.8 Allergy status to other drugs, medicaments and biological substances
CPT/HCPCS: 31624; 31628; 71045; 76000; 87070; 87102; 87116; 87186; 87205; 87206; 88108; 88305; 88313; 93005; J1100; J2250; J2405; J3010

== ENCOUNTER → 2022-10-29 | Outpatient (REF) | payer MEDICARE, MEDICAID ==
[~2022-10-29] MED LIST changes: -ARTIDRO4 OU; +POLYOPD OU
[2022-10-29 17:40] LABS: ALBUMIN 3.5 G/DL (3.2-5.2); ALKALINE PHOSPHATASE 117 U/L (46-116); ALT/SGPT 33 U/L (7.0-40); AST/SGOT 32 U/L (<34); BILIRUBIN,TOTAL 0.8 MG/DL (0.3-1.2); BLOOD UREA NITROGEN 12 MG/DL (9-23); CARBON DIOXIDE LEVEL 25 MMOL/L (20-31); CHLORIDE LEVEL 103 MMOL/L (98-107); CREATININE FOR GFR 1.11 MG/DL (0.70-1.30); GLOMERULAR FILTRATION RATE > 60.0 (>49); GLUCOSE, FASTING 174 MG/DL (74-106); POTASSIUM SERUM 4.4 MMOL/L (3.5-5.1); SODIUM LEVEL 136 MMOL/L (136-145); TOTAL PROTEIN 6.5 G/DL (5.7-8.2)
== END ==
LOC: M LAB REF 16:46
PROVIDERS: ATTEND Internal Medicine Critical Care Medicine
DX: J84.10 Pulmonary fibrosis, unspecified (principal)

== ENCOUNTER → 2024-12-09 | Outpatient (CLI) | payer MEDICARE, MEDICAID ==
[~2024-12-09] MED LIST changes: +ARTIDRO4 OU; -POLYOPD OU
== END ==
LOC: M PLAIMG 13:15
PROVIDERS: ATTEND Internal Medicine Critical Care Medicine
DX: R06.00 Dyspnea, unspecified (principal)